=== PATIENT | male | born 1985 | race Caucasian/White ===

== ENCOUNTER 2022-02-26 07:27 | Outpatient (CLI) | payer OTHER ==
--- NOTE | 2022-02-26 11:10 | MRI Report ---
PROCEDURE: Knee LT W/O INDICATIONS: INJURY TO LEFT KNEE TECHNIQUE: Noncontrast sagittal PD fast spin echo and T2 fast spin echo with fat saturation, sagittal 3-D gradie nt sequence with fat saturation; coronal T1 spin echo and PD fast spin echo with fat saturation, and axial PD fast spin echo with fat saturation through the knee. COMPARISON: None. FINDINGS: Image quality: Excellent. Menisci: There is vague linear oblique high signal intensity within the posterior horn medial meniscu s without definite articular surface extension. Lateral meniscus is intact. Cruciate ligaments: The anterior and posterior cruciate ligaments appear intact. Medial structures: The medial collateral ligament appears intact. Visualized portions of the pes ans erinus tendons appear normal. No abnormal bursal fluid. Lateral structures: The lateral collateral ligament demonstrates mild T2 signal elevation at the fem oral origin. The long and short heads of the biceps femoris tendon appear intact. The popliteus tend on appears normal. Iliotibial band appears normal. Anterior structures: The quadriceps and patellar tendons appear intact. There is mild T2 signal jessi vation within the patellar tendon at the patellar insertion site. Patellar alignment is normal. No f emoral trochlear dysplasia or ventral trochlear prominence. No edema in the infrapatellar fat pad. Bones and cartilage: No bone marrow contusions or fractures. Articular cartilage fibrillation overli es the lateral patellar facet. Joint space: There is physiologic knee joint fluid. No Wright's cyst. Normal appearing synovial pli are incidentally noted. IMPRESSION: 1. No internal derangement. 2. 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 3. Low-grade partial-thickness lateral collateral ligament tear. 4. Mild patellar tendinitis. Reviewed by: Becky Mendez MD on 02/26/2022 11:09 AM PDT Approved by: Becky Mendez MD on 02/26/2022 11:09 AM PDT Station ID: [id number]
== END 2022-02-26 07:28 | disposition home or self-care (01) ==
LOC: DI 07:27
PROVIDERS: ATTEND Student in an Organized Health Care Education/Training Program
DX: M23.304 Other meniscus derangements, unspecified medial meniscus, left knee (principal); S83.422A Sprain of lateral collateral ligament of left knee, initial encounter; M76.52 Patellar tendinitis, left knee

== ENCOUNTER 2022-10-22 14:08 | Outpatient (CLI) | payer OTHER ==
--- NOTE | 2022-10-22 15:18 | SLEEP CARE CONSULTATION ---
Information from patient questionnaire entered by Daisy Lincoln. I have reviewed and concur with the information entered by Daisy Lincoln. This document represents the service I personally performed and the decisions made by me, Chana Proctor ARNP. History of Present Illness Service Date and Time: 10/22/2022 1408 Reason for Visit: New patient Chief Complaint: reports: Unrefreshed sleep, Snoring, Observed pauses in breathing Date of Onset: 20YRS Usual bedtime: 10PM Time it takes to fall asleep: 10-45MIN Snores at night: Yes Observed to quit breathing while asleep: Yes Sleeps alone due to snoring: No Number of times waking at night: 3-4 Reasons for waking at night: reports: Snoring (1-2 times overall), Bathroom, Other (UNCOMFORTABLE). denies: Choking, Gasping for air Toss, Turn, or Twitch while sleeping: Yes Recalls having dreams: Yes Usually gets out of bed at: 5AM; weekends about -30 Feels refreshed in the morning: No Morning headache: Yes (3-4 times a month; WHEN I DO THEY GO AWAY WHEN BACK UP) Sleepy or fatigued during the day: Yes Ever fallen asleep while driving: No Takes day naps: No Dreams during day naps: No Prior sleep studies: No Additional HPI information: I had the pleasure of seeing QUIANA PICKARD today regarding the possibility of him having a sleep disorder. His current complaints are unrefreshed sleep, snoring and observed pauses in breathing. He states he has been told by his that he snores a lot. He was having a EEG for a syncope episode last year. He had one when he was sleeping that showed pauses in breathing. He was referred here for sleep study. - Parasomnia Symptoms Ever been unable to move upon waking from sleep: No Walks in sleep: No Talks in sleep: Yes (occasionally) Ever acted out dreams in sleep: No Ever felt weak in the knees when startled or emotional: No Bothered by creepy, crawly, restless sensations in legs: Yes (has tremors that happen when he is still) Problems with memory or concentration: Yes (memory) Subjective Initial [place] Sleepiness Scale score: 12 (10/21/22) Past Medical History Past Medical History: reports: Other (BODY TREMORS ) Social History The patient's occupation is a AM. Patient is and lives in . Have you smoked in the past 12 months: No Alcohol use: No Caffeine use: Yes Caffeine amount and frequency: 1 CUP COFFEE DAILY Family History Family history of sleep disordered breathing: No Allergies and Home Medications Drug allergies reviewed: Yes (NKDA) Home medication list reviewed: Yes Allergy and home medication list: Medications: Magnesium 250 mg twice a day Review of Systems Weight gain over past 5 years: 15 (up right now) Weight loss over past 5 years: 5 Cardiovascular: denies: high blood pressure Respiratory: denies: shortness of breath Gastrointestinal: denies: heartburn Neurological: reports: fainting or unconsciousness (syncope, May 2022; 7-8 episode ), other (TREMORS). denies: headaches, seizure, head trauma Psychiatric: denies: anxiety, depression Ear/Nose/Throat: reports: nasal congestion, sinus problems, wisdom teeth removed. denies: tonsillectomy Endocrine: denies: thyroid disease Musculoskeletal: reports: other (KNEE PAIN ) Immunologic: denies: allergies to food or environment Physical Exam Vital signs obtained and entered by: DAISY Dewey MA Blood Pressure: 132/84 (LEFT ARM) Cuff size: regular Heart Rate: 91 O2 Saturation: 97 Height: 5 ft 8 in Weight: 216 lb 12.8 oz Body Mass Index: 32.9 BMI Classification: Obese Neck circumference: 18 Mouth and throat: narrow oropharynx Uvula visualization: 25% Mallampati Class III Tongue: normal in size Tonsils: small Neck: normal w/o lymphadenopathy or thyromegaly Heart: regular rate and rhythm Lungs: clear bilaterally Impression and Plan 1. Suspected Obstructive Sleep Apnea-Hypopnea Syndrome, as suggested by a history of loud and irregular snoring, observed cessation of breath while asleep, morning headache, unrefreshed sleep and cognitive impairment. Narrow oropharynx and obesity are common predisposing factors for obstructive sleep apnea-hypopnea syndrome. I recommend proceeding to polysomnography to confirm the diagnosis and to assess severity. If the patient has significant sleep disordered breathing, a manual CPAP titration study will also be performed to find the optimal treatment pressure. I informed the patient of what the sleep studies involve and after some discussion, obtained agreement to proceed. The pathophysiology of obstructive sleep apnea-hypopnea syndrome was discussed with the patient and health risks of cardiovascular and cerebrovascular disease if not treated. Risks of drowsy driving discussed in detail and patient advised to avoid long distance driving and to machine puller over at the first sign of drowsiness. Patient agreed to plan. * Schedule polysomnography * Avoid long distance driving or driving when feeling sleepy. * Avoid alcohol, sedative and muscle relaxant around bedtime. * Attempt to lose weight. * Review instructions provided by trained office staff on how to prepare for the sleep study. * Return for follow-up after sleep study completed. Counseling Topics: Weight loss health impact Visit Type: In Office Time Spent with Patient (minutes): 31 Provider Statement: I spent 100% of the Face to Face Visit with the patient with greater than 50% spent counseling the patient and coordination of care.
[2022-10-22 15:21] VITALS: BP 132/84
== END 2022-10-22 14:09 | disposition home or self-care (01) ==
LOC: SC 14:08
PROVIDERS: ATTEND Nurse Practitioner Family
DX: R06.83 Snoring (principal); R06.81 Apnea, not elsewhere classified; R51.9 Headache, unspecified; G47.8 Other sleep disorders; R41.89 Other symptoms and signs involving cognitive functions and awareness; E66.9 Obesity, unspecified; Z68.32 Body mass index [BMI] 32.0-32.9, adult
CPT/HCPCS: 99203; 99212

== ENCOUNTER 2022-11-21 19:31 | Outpatient (CLI) | payer OTHER | END 2022-11-21 19:32 | disposition home or self-care (01) | LOC: SC 19:31 | PROVIDERS: ATTEND Nurse Practitioner Family | DX: G47.33 Obstructive sleep apnea (adult) (pediatric) (principal) | CPT/HCPCS: 95810 ==

== ENCOUNTER 2022-12-04 15:49 | Outpatient (CLI) | payer OTHER ==
[2022-12-04 16:19] VITALS: BP 136/82
--- NOTE | 2022-12-04 16:19 | SLEEP CARE CONSULTATION ---
Information from patient questionnaire entered by Diana Lincoln. I have reviewed and concur with the information entered by Diana Lincoln. This document represents the service I personally performed and the decisions made by , Chana Proctor ARNP. History of Present Illness Service Date and Time: 12/04/2022 154 Initial [place] Sleepiness Scale score: 12 (10/21/22) Current [place] Sleepiness Scale score: 13 (12/04/22) Additional HPI information: QUIANA PICKARD returns for follow up and results of the recently performed polysomnography. I explained the pathophysiology behind obstructive sleep apnea. We then spent quite a bit of time discussing different treatment options. For mild obstructive sleep apnea, surgery and oral appliance are alternatives to nasal CPAP therapy but in moderate or severe cases, nasal CPAP is the most effective and reliable treatment. Because apnea is primarily in supine position, then positional management therapy could be effective. Methods discussed such as positioning with pillows to prevent supine sleep. I reviewed the impact of weight changes on sleep apnea and strongly recommended losing weight. After some discussion, the patient opted to go with the nasal CPAP therapy. Nasal autoCPAP set at 4-15 cmH20 will be ordered with rationale explained. A manual titration study will be ordered if unable to find optimal pressure with office adjustments. I explained how CPAP machine works and what to expect when using the machine. Using CPAP every night in order to get used to it was emphasized. Patient advised to put CPAP mask on before getting into bed so as not to fall asleep w ithout CPAP. To assist acclimation to CPAP use, it could also be used for a short time during day while reading or watching TV. The patient was instructed to call the CPAP supplier to discuss any mechanical problem that may occur. If the mask given is uncomfortable or is difficult to keep on through the night even with adjustment, contact the CPAP supplier as many will replace with another mask style if notified before 30 days. If snoring or perceives is not getting enough air or too much air from the machine, notify this office. Patient does not drink alcohol. Patient was cautioned about risks of drowsy driving until sleepiness symptoms resolve. Patient denies drowsy driving. Sleep Study - Results Type of Sleep Study: Polysomnography (COMPLETED 11-21-22) Prior sleep studies: No Polysomnography/Home Sleep Study results: IMPRESSION: The quality of the study is good. The patient had normal sleep efficiency. The sleep architecture was abnormal for sleep fragmentation and reduced amount of time spent in REM and slow wave sleep (N3). Respiratory monitoring showed moderate obstructive sleep apnea-hypopnea (AHI = 26.2) associated with frequent arousals, oxyhemoglobin desaturation and mild hypoxia (franck oxygen saturation of 86%). The respiratory events occurred mainly during supine sleep (supine AHI = 47.7; non-supine = 8.88). Snore was light to moderate in intensity. There was no significant periodic leg movement of sleep. Cardiac rhythm was normal sinus rhythm without significant arrhythmia. No abnormal behavior (parasomnia) observed during the night. Allergies and Home Medications Drug allergies reviewed: Yes (NKDA) Home medication list reviewed: Yes (no changes) Review of Systems Review of systems same as previous: Yes (no changes) Physical Exam Vital signs obtained and entered by: DIANA Dewey MA Blood Pressure: 136/82 (LEFT ARM) Cuff size: regular Heart Rate: 78 O2 Saturation: 99 Height: 5 ft 8 in Weight: 221 lb 9.6 oz Body Mass Index: 33.7 BMI Classification: Obese Impression and Plan 1. Obstructive Sleep Apnea-Hypopnea Syndrome, moderate, with lowest oxygen saturation of 86%. Obviously this is the cause of the patients symptoms of unrefreshed sleep, and excessive daytime sleepiness. As mentioned above, the patient will be started on nasal autoCPAP therapy with pressure set at 4-15 cmH2 O. Compliance guidelines also reviewed. A copy of compliance guidelines will be given for reference at check out. Because the apnea is more severe supine, I instructed to avoid sleeping supine using pillow positioning until able to start CPAP use. * Nasal auto CPAP therapy, pressure at 4-15 cm H2O. * Attempt to lose weight. * Avoid alcohol consumption near bedtime. * Avoid supine sleep until using CPAP. * The patient is again cautioned about driving until sleepiness completely resolves. * Return one month after CPAP obtained. I will assess response to therapy and compliance at that time. Counseling Topics: Weight loss health impact Visit Type: In Office Time Spent with Patient (minutes): 21 Provider Statement: I spent 100% of the Face to Face Visit with the patient with greater than 50% spent counseling the patient and coordination of care.
== END 2022-12-04 15:50 | disposition home or self-care (01) ==
LOC: SC 15:49
PROVIDERS: ATTEND Nurse Practitioner Family
DX: G47.33 Obstructive sleep apnea (adult) (pediatric) (principal); E66.9 Obesity, unspecified; Z68.33 Body mass index [BMI] 33.0-33.9, adult
CPT/HCPCS: 99212; 99213

== ENCOUNTER 2023-02-05 08:42 | Outpatient (CLI) | payer OTHER ==
--- NOTE | 2023-02-05 09:16 | SLEEP CARE CONSULTATION ---
Information from patient questionnaire entered by Daisy Lincoln. I have reviewed and concur with the information entered by Daisy Lincoln. This document represents the service I personally performed and the decisions made by , Chaan Proctor ARNP. History of Present Illness Service Date and Time: 02/05/2023 0842 Previous diagnosis: Moderate, Obstructive Sleep Apnea-Hypopnea Syndrome AHI: 26.2 (in 2022) Reason for follow up: first compliance Equipment type: CPAP (RESMED Airsense 10, s/u 12/2022) Equipment obtained from: Other ([employer]; got initial supplies) Mask style: Full face Mask brand: Resmed (AirTouch [id number]) Backup mask available: Yes (other mask) Last cushion change: changing between different size cushions Prior sleep studies: No Type of Sleep Study: Polysomnography (COMPLETED 11-21-22) HPI additional information: QUIANA PICKARD was diagnosed to have moderate, AHI 26.2, obstructive sleep apnea- hypopnea syndrome and returned today for CPAP therapy first compliance follow- up. Sleep Study - Results Type of Sleep Study: Polysomnography (COMPLETED 11-21-22) Prior sleep studies: No CPAP Compliance Data - Data Reviewed with Patient Average duration of nightly device use: 6 HRS 39 MIN Compliance rate %: 100 (01/05/23-02/03/23; 30 days used) Current pressure setting (cmH2O): 4-15 (median 9.6, avg 12.5, max 13.9) Average residual AHI: 1.9 Central apnea: 0.1 Obstructive apnea: 0.9 Hypopnea: 0.8 Average large leak: 0.3 lpm Subjective Patient concerns: reports: air blowing in eyes (occasional). denies: aerophagia, mask discomfort, mask leak noise, condensation in mask/hose, nasal congestion, dry mouth, nose, throat, epistaxis Observed to snore while using device: No Current pressure setting perceived as: comfortable On therapy, patient: reports: sleeping better, awakening more refreshed, being more awake and alert during the day, more rested overall, other (reduced headaches overall). denies: drowsiness while driving Initial [place] Sleepiness Scale score: 12 (10/21/22) Current [place] Sleepiness Scale score: 13 (02/05/23) Allergies and Home Medications Known drug allergies: No Drug allergies reviewed: Yes Home medication list reviewed: Yes (no changes) Review of Systems Review of systems same as previous: Yes (no changes) Physical Exam Vital signs obtained and entered by: DAISY Dewey MA Blood Pressure: 112/64 (LEFT ARM) Cuff size: regular Heart Rate: 56 O2 Saturation: 98 Height: 5 ft 8 in Weight: 212 lb 6.4 oz (.) Weight change since last visit: 9 lb loss Body Mass Index: 32.3 BMI Classification: Obese Impression and Plan 1. Obstructive Sleep Apnea-Hypopnea Syndrome, moderate, with good treatment compliance and good apnea control. On CPAP therapy, the patient has better sleep quality and is more rested overall. Patient has significant improvement of their sleep apnea and is satisfied with current CPAP therapy. Patient denies problems with oral dryness, nasal congestion, epistaxis, skin irritation or aerophagia. The patients pressure will be changed to autoCPAP 12-15 cmH20 to reflect pressures being used. Patient advised to contact me if pressure change is uncomfortable so that it can be adjusted. Goals for apnea control discussed. Patient's apnea severity and rationale for treatment to reduce apnea, improve sleep quality and reduce cardiovascular and cerebrovascular events was reviewed. 2. Obesity, unspecified. Currently patients BMI is 32.2. He has lost weight. He is watching calories and increased activity with working out at the gym. Obesity increases the risk of apnea, CPAP pressure requirements and overall health risks especially cardiovascular and diabetes. Thus patient is advised to lose weight. * Change auto CPAP pressure to 12-15 cmH2O which is medically necessary to treat sleep apnea * Notify me if snoring with mask or feeling that the pressure is too much or too little * Attempt to lose weight * Call this office if any problems using CPAP * Return for follow up in 1-2 months, or sooner if concerns arise Counseling Topics: Spare mask, Weight loss health impact Visit Type: In Office Time Spent with Patient (minutes): 21 Provider Statement: I spent 100% of the Face to Face Visit with the patient with greater than 50% spent counseling the patient and coordination of care.
[2023-02-05 09:25] VITALS: BP 112/64
== END 2023-02-05 08:43 | disposition home or self-care (01) ==
LOC: SC 08:42
PROVIDERS: ATTEND Nurse Practitioner Family
DX: G47.33 Obstructive sleep apnea (adult) (pediatric) (principal); E66.9 Obesity, unspecified; Z68.32 Body mass index [BMI] 32.0-32.9, adult
CPT/HCPCS: 99212; 99213

== ENCOUNTER 2023-03-07 08:14 | Outpatient (CLI) | payer OTHER ==
--- NOTE | 2023-03-07 08:40 | Sleep Patient Instructions ---
Sleep Center Visit Summary - Patient Visit Information Reason for Visit: One month follow up for CPAP therapy - Patient Instructions Additional Instructions: You were here for follow up of CPAP therapy. You will be continued on CPAP therapy with pressure at 12-15 cmH2O. You should follow up with sleep care in 3 months. You may contact us sooner for any questions or concerns. - Clinic Information Contact: [facility] [address] [place] [address] [email or web address] T: [phone]
--- NOTE | 2023-03-07 08:45 | SLEEP CARE CONSULTATION ---
Information from patient questionnaire entered by Daisy Lincoln. I have reviewed and concur with the information entered by Daisy Lincoln. This document represents the service I personally performed and the decisions made by me, Chana Proctor ARNP. History of Present Illness Service Date and Time: 03/07/2023 08 Previous diagnosis: Moderate, Obstructive Sleep Apnea-Hypopnea Syndrome AHI: 26.2 Reason for follow up: one month (F/U) Equipment type: CPAP (RESMED Airsense 10, s/u 12/2022) Equipment obtained from: Other ([facility]; getting supplies as needed) Mask style: Full face (large cushion) Backup mask available: No (will keep old mask when replaced) Last cushion change: 3 weeks Prior sleep studies: No Type of Sleep Study: Polysomnography (COMPLETED 11-21-22) HPI additional information: QUIANA PICKARD was diagnosed to have moderate, AHI 26.2, obstructive sleep apnea- hypopnea syndrome and returned today for CPAP therapy one month follow-up. Sleep Study - Results Type of Sleep Study: Polysomnography (COMPLETED 11-21-22) Prior sleep studies: No CPAP Compliance Data - Data Reviewed with Patient Average duration of nightly device use: 5 HRS 59 MINS Compliance rate %: 73 (02/04/23-03/05/23; days used) Current pressure setting (cmH2O): 12-15 Average residual AHI: 1.7 Central apnea: 0.3 Obstructive apnea: 0.9 Average large leak: 0.1 lpm Subjective Patient concerns: reports: air blowing in eyes (sometimes). denies: aerophagia, mask discomfort, mask leak noise, condensation in mask/hose, nasal congestion, dry mouth, nose, throat, epistaxis Observed to snore while using device: No Current pressure setting perceived as: comfortable On therapy, patient: reports: sleeping better, awakening more refreshed, being more awake and alert during the day, more rested overall. denies: drowsiness while driving Initial [place] Sleepiness Scale score: 12 (10/21/22) Current [place] Sleepiness Scale score: 12 (03/07/23) Allergies and Home Medications Known drug allergies: No Drug allergies reviewed: Yes Home medication list reviewed: Yes (no changes) Review of Systems Review of systems same as previous: Yes (anxiety) Physical Exam Vital signs obtained and entered by: DAISY Dewey MA Blood Pressure: 128/76 (LEFT ARM) Cuff size: long Heart Rate: 46 O2 Saturation: 98 Height: 5 ft 8 in Weight: 207 lb 6.4 oz Weight change since last visit: 5 lb loss Body Mass Index: 31.5 BMI Classification: Obese Impression and Plan 1. Obstructive Sleep Apnea-Hypopnea Syndrome, moderate, with good treatment compliance and good apnea control. On CPAP therapy, the patient has better sleep quality and is more rested overall. Patient has significant improvement of their sleep apnea and is satisfied with current CPAP therapy. Patient been switching between medium and large cushion and prefers a large cushion on his fullface mask. He occasionally gets some air leaking into his eyes but just needs to adjust his mask. Patient's apnea severity and rationale for treatment to reduce apnea, improve sleep quality and reduce cardiovascular and cerebrovascular events was reviewed. Patient is to continue CPAP use as it is medically necessary for ongoing treatment of his obstructive sleep apnea. 2. Obesity, unspecified. Currently patients BMI is 31.5. Obesity increases the risk of apnea, CPAP pressure requirements and overall health risks especially cardiovascular and diabetes. Thus patient is advised to continue to try to lose weight. * Continue auto CPAP pressure at 12-15 cmH2O * Notify me if snoring with mask or feeling that the pressure is too much or too little * Continue to try to lose weight * Call this office if any problems using CPAP * Return for follow up in 3 months, or sooner if concerns arise Counseling Topics: Weight loss health impact Visit Type: In Office Time Spent with Patient (minutes): 12 Provider Statement: I spent 100% of the Face to Face Visit with the patient with greater than 50% spent counseling the patient and coordination of care.
[2023-03-07 08:48] VITALS: BP 128/76
== END 2023-03-07 08:15 | disposition home or self-care (01) ==
LOC: SC 08:14
PROVIDERS: ATTEND Nurse Practitioner Family
DX: G47.33 Obstructive sleep apnea (adult) (pediatric) (principal); E66.9 Obesity, unspecified; Z68.31 Body mass index [BMI] 31.0-31.9, adult
CPT/HCPCS: 99212

== ENCOUNTER 2023-05-27 08:30 | Outpatient (CLI) | payer OTHER ==
--- NOTE | 2023-05-27 08:51 | Sleep Patient Instructions ---
Sleep Center Visit Summary - Patient Visit Information Reason for Visit: Two month followup for PAP therapy - Patient Instructions Additional Instructions: You were here for follow up of CPAP therapy. You will be continued on CPAP therapy with pressure at 12-15 cmH2O. You should follow up with sleep care in 12 months. You may contact us sooner for any questions or concerns. - Clinic Information Contact: [facility] [address] [place] [address] [email or web address] T: [phone]
--- NOTE | 2023-05-27 09:02 | SLEEP CARE CONSULTATION ---
Information from patient questionnaire entered by Daisy Lincoln. I have reviewed and concur with the information entered by Daisy Lincoln. This document represents the service I personally performed and the decisions made by me, Chana Proctor ARNP. History of Present Illness Service Date and Time: 05/27/2023 0830 Previous diagnosis: Moderate, Obstructive Sleep Apnea-Hypopnea Syndrome AHI: 26.2 (in 2022) Reason for follow up: other (2 MONTH F/U) Equipment type: CPAP (RESMED Airsense 10, s/u 12/2022) Equipment obtained from: Other ([employer]; getting supplies) Mask style: Full face Backup mask available: Yes (other mask) Last cushion change: 3 weeks Prior sleep studies: No Type of Sleep Study: Polysomnography (COMPLETED 11-21-22) HPI additional information: QUIANA PICKARD was diagnosed to have moderate, AHI 26.2, obstructive sleep apnea- hypopnea syndrome and returned today for CPAP therapy two months follow-up. Sleep Study - Results Type of Sleep Study: Polysomnography (COMPLETED 11-21-22) Prior sleep studies: No CPAP Compliance Data - Data Reviewed with Patient Average duration of nightly device use: 5 hours 52 minutes Compliance rate %: 60 (41/60 days used) Current pressure setting (cmH2O): 12-15 Average residual AHI: 1.1 Central apnea: 0.1 Obstructive apnea: 0.5 Average large leak: 0.1 L/min Subjective Missed days of use due to: reports: travel (vacation for 2 weeks, camping) Patient concerns: reports: air blowing in eyes (adjustment helps mask seal), other (headaches only when not using his CPAP). denies: aerophagia, mask discomfort, mask leak noise, condensation in mask/hose, nasal congestion, dry mouth, nose, throat, epistaxis Observed to snore while using device: No Current pressure setting perceived as: comfortable On therapy, patient: reports: sleeping better, awakening more refreshed, being more awake and alert during the day, more rested overall, other (less headaches ). denies: drowsiness while driving Initial Tavernier Sleepiness Scale score: 12 (10/21/22) Current Tavernier Sleepiness Scale score: 17 (05/27/23) Allergies and Home Medications Known drug allergies: No Drug allergies reviewed: Yes Home medication list reviewed: Yes (no changes) Allergy and home medication list: Allergies No Known Drug Allergies Allergy (Verified 05/26/23 08:59) Review of Systems Review of systems same as previous: Yes (no changes) Physical Exam Vital signs obtained and entered by: DAISY Dewey MA Blood Pressure: 110/68 (LEFT ARM) Cuff size: regular Heart Rate: 68 O2 Saturation: 98 Height: 5 ft 8 in Weight: 204 lb 3.2 oz Body Mass Index: 31.0 BMI Classification: Obese Impression and Plan 1. Obstructive Sleep Apnea-Hypopnea Syndrome, moderate, with fair treatment compliance and good apnea control. On CPAP therapy, the patient has better sleep quality and is more rested overall. He continues using his CPAP as a medical necessity to control his sleep apnea. His compliance is down due to a 2-week camping trip where he was unable to use his CPAP machine. He states he noticed the difference in his headaches have become more frequent since he was not using his CPAP. Patient has significant improvement of their sleep apnea and is satisfied with current CPAP therapy. He states he will be from the and moving over the next year. We reviewed obtaining a new sleep provider when he is settled in new home. He voiced understanding. Patient's apnea severity and rationale for treatment to reduce apnea, improve sleep quality and reduce cardiovascular and cerebrovascular events was reviewed. 2. Obesity, unspecified. Currently patients BMI is 31. Obesity increases the risk of apnea, CPAP pressure requirements and overall health risks especially cardiovascular and diabetes. Thus patient is advised to lose weight. * Continue auto CPAP pressure at 12-15 cmH2O * Notify me if snoring with mask or feeling that the pressure is too much or too little * Attempt to lose weight * Call this office if any problems using CPAP * Return for follow up in 12 months, or sooner if concerns arise Counseling Topics: Spare mask, Weight loss health impact Visit Type: In Office Time Spent with Patient (minutes): 15 Provider Statement: I spent 100% of the Face to Face Visit with the patient with greater than 50% spent counseling the patient and coordination of care.
[2023-05-27 09:05] VITALS: BP 110/68; O2SAT 98
== END 2023-05-27 08:31 | disposition home or self-care (01) ==
LOC: SC 08:30
PROVIDERS: ATTEND Nurse Practitioner Family
DX: G47.33 Obstructive sleep apnea (adult) (pediatric) (principal); E66.9 Obesity, unspecified; Z68.31 Body mass index [BMI] 31.0-31.9, adult
CPT/HCPCS: 99212